=== PATIENT | male | born 1935 | race Caucasian/White ===

== ENCOUNTER 2016-06-25 11:58 | Emergency (ER) | payer MEDICARE, OTHER ==
[2016-06-25 13:42] VITALS: BP 153/56
--- NOTE | 2016-06-26 15:36 | ER ---
DATE SEEN: 06/25/2016 TIME SEEN: The patient was seen at approximately 1225 hours. HISTORY OF PRESENT ILLNESS: This 81-year-old gentleman comes in with history of bleed in the right lower eye. It was noted by his bit tapper on 06/23/2016. The patient states he can read big writing. Otherwise, he has a baseline vision that has not changed. No history of glaucoma. Denies pain in his eye, but is uncomfortable. PAST MEDICAL HISTORY: He has had aortic graft placed, which he relates was from the neck to the lower abdomen. He did not have any compromise with this. He quit smoking in 1990. Smoked a pack of cigarettes for 18 years. He has chronic obstructive lung disease, but he feels that his emphysema was more from dust than smoking. He has had previous stents in his heart. He went to [facility] because the [place] thoracic surgeon felt that they could not operate on hiw aortic aneurysm at [place]. The patient states a "stent" was placed, but really is probably an aortic graft, Dacron graft. Status post inguinal herniorrhaphy 2 months ago for which he was transitioned to enoxaparin and then back on to Coumadin. Intermittent chest pain, which he calls "little one/for few seconds." He has reflux. MEDICATIONS: 1. Metoprolol succinate 100 mg daily, 50 mg daily, total of 150 mg daily. 2. Aspirin 81 mg daily. 3. Tylenol. 4. Simvastatin 40 mg daily. 5. Protonix 40 mg daily. 6. Multivitamins. 7. Warfarin 2.5 mg Sunday, Sunday, , Sunday, and Sunday, otherwise Sunday and Sunday 5 mg daily. REVIEW OF SYSTEMS: Otherwise, negative. He denies abdominal discomfort currently, weakness lower extremities, difficulty walking, previous headache. He denies new compromised vision. PHYSICAL EXAMINATION: VITAL SIGNS: Blood pressure 178/71, heart rate 65 and regular, respirations 20, oxygen saturation 93% on room air, temperature is 36.8 degrees centigrade. GENERAL: Alert man, very happy fellow, has a slight red flush in his face. He has notable injection of the inferior sclera, right eye. HEENT: Pupils equal, round, and minimal reactivity, but react to light. EOMs normal. No diplopia. No compromise of vision with confrontation. No visual field loss. NECK: Trace bruits. No masses. CHEST: Slight irregularity from his previous sternotomy. HEART: S1, S2. No irregular rate and rhythm. Soft systolic murmur. Left crescendo-decrescendo sternal border. LUNGS: Occasional rales. ABDOMEN: Soft. No guarding. No abdominal discomfort. No bruits. EXTREMITIES: Without edema. Sensation extremities normal. Deep tendon reflexes hypoactive. NEUROLOGIC: Cranial nerves 2 through 12 intact. Decreased hearing. LABORATORY DATA: INR 2.11; previous INR on 06/15/2016 was 2.6. ADDITIONAL COMMENT: Eye exam; ophthalmoscopic examination with arterial narrowing. Optic cup normal appearance. No evidence for retinal tear. Mild right scleral injection. No cataracts evident. ASSESSMENT: 1. Scleral hemorrhage, probably benign. 2. No history of visual change with scleral hemorrhage. 3. The patient is on anticoagulants because of his previous aortic aneurysm graft and stents placed. 4. Appropriate anticoagulation with his current warfarin dose. 5. Chronic obstructive pulmonary disease. 6. Gastroesophageal reflux disease. PLAN: The patient to follow up with Ophthalmology tomorrow. /[id number] MELITON/DAVID PULIDO
== END 2016-06-25 13:48 | disposition home or self-care (01) ==
LOC: FB.ED 11:58
DX: H11.31 Conjunctival hemorrhage, right eye (principal); J44.9 Chronic obstructive pulmonary disease, unspecified; K21.9 Gastro-esophageal reflux disease without esophagitis; Z87.891 Personal history of nicotine dependence
CPT/HCPCS: 36415; 85610; 99282; 99283

== ENCOUNTER 2017-01-17 19:05 | Inpatient (IN) | payer MEDICARE, OTHER ==
[2017-01-17] MEDS ORDERED: methylPREDNISolone Sodium Succinate 40 MG/1 ML SDV IVPUSH ONE (20:11)
[2017-01-17] MEDS ORDERED: Albuterol/Ipratropium 3.0-0.5 MG/3 ML Neb Soln NEB ONE (21:04)
[2017-01-17] MEDS: Albuterol/Ipratropium 3.0-0.5 MG/3 ML Neb Soln ONE ×2 (21:04→21:10)
[2017-01-17] MEDS: Sodium Chloride 0.9% 10 ML Syringe FLUSH PRN ×2 (21:11→23:10)
[2017-01-17] MEDS ORDERED: Levofloxacin 500 MG Tab PO SCH (21:30)
--- NOTE | 2017-01-17 21:37 | EDM.PDOC ---
ED HPI GENERAL MEDICAL PROBLEM - General Chief Complaint: Respiratory Problem Stated Complaint: PNEUMONIA Time Seen by Provider: 01/17/17 20:34 Source of Information: Reports: Patient History Limitations: Reports: No Limitations - History of Present Illness INITIAL COMMENTS - FREE TEXT/NARRATIVE: c/o RLL pneumonia pt sent from clinic by Dr Rubin for admission for CxR that shows slight inc' d markings in RLL. pt lives alone since 11m ago, sob x 5d, got better , then worse again, has a hard time bringing up mucus, no f/c/d, no nebs or HFAs at home, did not get much benefit from Duoneb here. 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: Oxygen - Related Data Allergies Allergy/AdvReac Type Severity Reaction Status Date / Time succinylcholine Allergy Other Verified 01/17/17 20:01 Home Meds: Home Meds Acetaminophen [Tylenol] 325 mg PO DAILY PRN 05/26/15 [History] Aspirin 81 mg PO DAILY 05/26/15 [History] Metoprolol Succinate 50 mg PO DAILY 05/26/15 [History] Metoprolol Succinate [Toprol Xl] 100 mg PO DAILY 05/26/15 [History] Multivit-Min/FA/Lycopene/Lut [Centrum Silver Ultra Men's] 1 tab PO DAILY [History] Pantoprazole [Protonix] 40 mg PO DAILY PRN 05/26/15 [History] Simvastatin [Simvastatin] 40 mg PO BEDTIME 05/26/15 [History] Warfarin [Coumadin] 2.5 mg PO SUTUTHFRSA 05/26/15 [History] Warfarin [Coumadin] 5 mg PO MOWEFR 05/26/15 [History] Past Medical History HEENT History: Reports: Impaired Vision Other HEENT History: wears glasses Cardiovascular History: Reports: Afib, High Cholesterol, Hypertension, Other ( See Below) Other Cardiovascular History: malignant hyperthermia Respiratory History: Reports: COPD Gastrointestinal History: Reports: GERD Hematologic History: Reports: Anticoagulation Therapy - Infectious Disease History Infectious Disease History: Reports: Chicken Pox, Measles, Shingles - Past Surgical History Cardiovascular Surgical History: Reports: Coronary Artery Bypass Social & Family History - Family History Family Medical History: Noncontributory - Tobacco Use Smoking Status *Q: Former Smoker Years of Tobacco use: 40 Used Tobacco, but Quit: Yes Month Tobacco Last Used: 20 YEARS AGO - Caffeine Use Caffeine Use: Reports: Coffee - Recreational Drug Use Recreational Drug Use: No ED ROS GENERAL - Review of Systems Review Of Systems: See Below Constitutional: Reports: No Symptoms HEENT: Reports: No Symptoms Respiratory: Reports: Shortness of Breath, Cough Cardiovascular: Reports: No Symptoms. Denies: Chest Pain Endocrine: Reports: No Symptoms GI/Abdominal: Reports: No Symptoms : Reports: No Symptoms Musculoskeletal: Reports: No Symptoms Skin: Reports: No Symptoms Neurological: Reports: No Symptoms Psychiatric: Reports: No Symptoms Hematologic/Lymphatic: Reports: No Symptoms Immunologic: Reports: No Symptoms ED EXAM, GENERAL - Physical Exam Exam: See Below Exam Limited By: No Limitations General Appearance: Alert, WD/WN, No Apparent Distress, Other (quite pleasant, talkative, smiling, talks in 10-word sentences) Eye Exam: Bilateral Eye: Normal Inspection Ears: Normal External Exam Nose: Normal Inspection, Normal Mucosa, No Blood Throat/Mouth: Normal Inspection, Normal Lips, Normal Gums, Normal Oropharynx, Normal Voice, No Airway Compromise Head: Atraumatic, Normocephalic Neck: Normal Inspection, Supple, Non-Tender, Full Range of Motion Respiratory/Chest: Lungs Clear, Chest Non-Tender, Other (fair AE, no wheeze, no rales, mild dyspnea) Cardiovascular: Regular Rate, Rhythm, No Edema, No Gallop, No Rub, Other (2/6 SILKE at LSB) GI/Abdominal: Soft, Non-Tender, No Distention Back Exam: Normal Inspection Extremities: Normal Inspection, Normal Range of Motion, Non-Tender, No Pedal Edema Neurological: Alert, Oriented, CN II-XII Intact, Normal Cognition, No Motor/ Sensory Deficits Psychiatric: Normal Affect, Normal Mood Skin Exam: Warm, Dry, Intact, Normal Color, No Rash Lymphatic: No Adenopathy Course - Vital Signs Last Recorded V/S: Last Vital Signs Temp 36.5 C 01/17/17 19:55 Pulse 75 01/17/17 19:55 Resp 20 01/17/17 21:00 BP 149/93 H 01/17/17 21:00 Pulse Ox 89 L 01/17/17 21:00 - Orders/Labs/Meds Orders: Active Orders 24 hr Category Date Time Status EKG Documentation Completion [RC] ASDIRECTED Care 01/17/17 20:10 Active RT Aerosol Therapy [RC] ASDIRECTED Care 01/17/17 21:05 Active URINALYSIS W/MICROSCOPIC [UA W/MICROSCOPIC] [URIN] Stat Lab 01/17/17 20:08 Uncollected Levofloxacin [Levaquin] Med 01/17/17 21:30 Ordered 500 mg PO Q24H Sodium Chloride 0.9% [Saline Flush] Med 01/17/17 21:04 Active 10 ml FLUSH ASDIRECTED PRN Peripheral IV Insertion Adult [OM.PC] Routine Oth 01/17/17 21:04 Ordered EKG 12 Lead [EK] Routine Ther 01/17/17 20:09 Ordered Medication Orders Levofloxacin (Levaquin) 500 mg PO Q24H JESUS Sodium Chloride (Saline Flush) 10 ml FLUSH ASDIRECTED PRN PRN Reason: Keep Vein Open Last Admin: 01/17/17 21:11 Dose: 10 ml Labs: Laboratory Tests 01/17/17 01/17/17 01/17/17 Range/Units 20:30 20:30 20:30 WBC 8.2 (4.5-12.0) X10-3/uL RBC 4.69 (4.30-5.75) x10(6)uL Hgb 14.4 (11.5-15.5) g/dL Hct 44.2 (30.0-51.3) % MCV 94.2 (80-96) fL MCH 30.7 (27.7-33.6) pg MCHC 32.6 (32.2-35.4) g/dL RDW 14.6 (11.5-15.5) % Plt Count 106 L (125-369) X10(3)uL MPV 9.0 (7.4-10.4) fL Neut % (Auto) 84.1 H (46-82) % Lymph % (Auto) 7.8 L (13-37) % [place] % (Auto) 6.3 (4-12) % Eos % (Auto) 1 (1.0-5.0) % Baso % (Auto) 1 (0-2) % Neut # (Auto) 7.0 (1.6-8.3) # Lymph # (Auto) 0.6 (0.6-5.0) # [place] # (Auto) 0.5 (0.0-1.3) # Eos # (Auto) 0.0 (0.0-0.8) # Baso # (Auto) 0.1 (0.0-0.2) # PT 45.5 H* (8.7-11.1) INR 4.37 H* (0.89-1.13) VBG pH 7.327 (7.32-7.42) VBG pCO2 66.0 VBG pO2 21 VBG HCO3 35 mmol/L VBG O2 Saturation 28 VBG Base Excess 9.0 O2 Delivery Device Nasal cannula Sodium (135-145) mmol/L Potassium (3.5-5.3) mmol/L Chloride (100-110) mmol/L Carbon Dioxide (23-29) mmol/L BUN (8-23) mg/dL Creatinine (0.6-1.3) mg/dL Est Cr Clr Drug Dosing mL/min Estimated GFR (MDRD) (>60) BUN/Creatinine Ratio (9-20) Glucose (80-116) mg/dL Lactic Acid (0.5-2.2) mmol/L Calcium (8.6-10.2) mg/dL Total Bilirubin (0.1-1.3) mg/dL AST (5-27) IU/L ALT (14-26) IU/L Alkaline Phosphatase (56-112) IU/L Troponin I (0.02-0.06) NG/ML C-Reactive Protein (0.0-1.0) mg/dL NT-Pro-B Natriuret Pep (5-450) pg/mL Total Protein (6.0-8.0) g/dL Albumin (3.2-4.6) g/dL Globulin g/dL Albumin/Globulin Ratio 01/17/17 01/17/17 01/17/17 Range/Units 20:30 20:30 20:30 WBC (4.5-12.0) X10-3/uL RBC (4.30-5.75) x10(6)uL Hgb (11.5-15.5) g/dL Hct (30.0-51.3) % MCV (80-96) fL MCH (27.7-33.6) pg MCHC (32.2-35.4) g/dL RDW (11.5-15.5) % Plt Count (125-369) X10(3)uL MPV (7.4-10.4) fL Neut % (Auto) (46-82) % Lymph % (Auto) (13-37) % [place] % (Auto) (4-12) % Eos % (Auto) (1.0-5.0) % Baso % (Auto) (0-2) % Neut # (Auto) (1.6-8.3) # Lymph # (Auto) (0.6-5.0) # [place] # (Auto) (0.0-1.3) # Eos # (Auto) (0.0-0.8) # Baso # (Auto) (0.0-0.2) # PT (8.7-11.1) INR (0.89-1.13) VBG pH (7.32-7.42) VBG pCO2 VBG pO2 VBG HCO3 mmol/L VBG O2 Saturation VBG Base Excess O2 Delivery Device Sodium 140 (135-145) mmol/L Potassium 4.5 (3.5-5.3) mmol/L Chloride 99 L (100-110) mmol/L Carbon Dioxide 36 H (23-29) mmol/L BUN 20 (8-23) mg/dL Creatinine 0.8 (0.6-1.3) mg/dL Est Cr Clr Drug Dosing 68.85 mL/min Estimated GFR (MDRD) > 60 (>60) BUN/Creatinine Ratio 25.0 H (9-20) Glucose 146 H (80-116) mg/dL Lactic Acid 0.9 (0.5-2.2) mmol/L Calcium 8.5 L (8.6-10.2) mg/dL Total Bilirubin 1.0 (0.1-1.3) mg/dL AST 29 H (5-27) IU/L ALT 37 H (14-26) IU/L Alkaline Phosphatase 69 (56-112) IU/L Troponin I 0.04 (0.02-0.06) NG/ML C-Reactive Protein (0.0-1.0) mg/dL NT-Pro-B Natriuret Pep (5-450) pg/mL Total Protein 6.9 (6.0-8.0) g/dL Albumin 3.6 (3.2-4.6) g/dL Globulin 3.3 g/dL Albumin/Globulin Ratio 1.1 01/17/17 01/17/17 Range/Units 20:30 20:30 WBC (4.5-12.0) X10-3/uL RBC (4.30-5.75) x10(6)uL Hgb (11.5-15.5) g/dL Hct (30.0-51.3) % MCV (80-96) fL MCH (27.7-33.6) pg MCHC (32.2-35.4) g/dL RDW (11.5-15.5) % Plt Count (125-369) X10(3)uL MPV (7.4-10.4) fL Neut % (Auto) (46-82) % Lymph % (Auto) (13-37) % [place] % (Auto) (4-12) % Eos % (Auto) (1.0-5.0) % Baso % (Auto) (0-2) % Neut # (Auto) (1.6-8.3) # Lymph # (Auto) (0.6-5.0) # [place] # (Auto) (0.0-1.3) # Eos # (Auto) (0.0-0.8) # Baso # (Auto) (0.0-0.2) # PT (8.7-11.1) INR (0.89-1.13) VBG pH (7.32-7.42) VBG pCO2 VBG pO2 VBG HCO3 mmol/L VBG O2 Saturation VBG Base Excess O2 Delivery Device Sodium (135-145) mmol/L Potassium (3.5-5.3) mmol/L Chloride (100-110) mmol/L Carbon Dioxide (23-29) mmol/L BUN (8-23) mg/dL Creatinine (0.6-1.3) mg/dL Est Cr Clr Drug Dosing mL/min Estimated GFR (MDRD) (>60) BUN/Creatinine Ratio (9-20) Glucose (80-116) mg/dL Lactic Acid (0.5-2.2) mmol/L Calcium (8.6-10.2) mg/dL Total Bilirubin (0.1-1.3) mg/dL AST (5-27) IU/L ALT (14-26) IU/L Alkaline Phosphatase (56-112) IU/L Troponin I (0.02-0.06) NG/ML C-Reactive Protein 5.2 H* (0.0-1.0) mg/dL NT-Pro-B Natriuret Pep 2158 H (5-450) pg/mL Total Protein (6.0-8.0) g/dL Albumin (3.2-4.6) g/dL Globulin g/dL Albumin/Globulin Ratio Meds: Medications Generic Name Dose Route Start Last Admin Trade Name Freq PRN Reason Stop Dose Admin Levofloxacin 500 mg 01/17/17 21:30 Levaquin PO Q24H JESUS Sodium Chloride 10 ml 01/17/17 21:04 01/17/17 21:11 Saline Flush FLUSH 10 ml ASDIRECTED PRN Administration Keep Vein Open Discontinued Medications Generic Name Dose Route Start Last Admin Trade Name Freq PRN Reason Stop Dose Admin Albuterol/Ipratropium Confirm 01/17/17 20:58 01/17/17 21:10 Duoneb 3.0-0.5 Mg/3 Ml Administered 01/17/17 20:59 Not Given Dose 3 ml .ROUTE .STK-MED ONE Albuterol/Ipratropium 3 ml 01/17/17 21:04 01/17/17 21:04 Duoneb 3.0-0.5 Mg/3 Ml NEB 01/17/17 21:05 3 ml ONETIME ONE Administration Methylprednisolone Sodium Succinate 80 mg 01/17/17 20:11 01/17/17 21:09 Solu-Medrol IVPUSH 01/17/17 20:12 80 mg ONETIME ONE Administration Departure - Departure Time of Disposition: 21:34 Disposition: Admitted As Inpatient 67 Condition: Good Clinical Impression: Right lower lobe pneumonia, Carbon dioxide retention, COPD exacerbation, Pulmonary fibrosis, Acute exacerbation of congestive heart failure, Supratherapeutic INR, Elevated C-reactive protein (CRP) - Discharge Information Referrals: Wm Rubin MD [Primary Care Provider] - - My Orders Last 24 Hours: My Active Orders 01/17/17 20:08 URINALYSIS W/MICROSCOPIC [UA W/MICROSCOPIC] [URIN] Stat 01/17/17 20:09 EKG 12 Lead [EK] Routine 01/17/17 20:10 EKG Documentation Completion [RC] ASDIRECTED 01/17/17 21:04 Sodium Chloride 0.9% [Saline Flush] 10 ml FLUSH ASDIRECTED PRN Peripheral IV Insertion Adult [OM.PC] Routine 01/17/17 21:05 RT Aerosol Therapy [RC] ASDIRECTED 01/17/17 21:30 Levofloxacin [Levaquin] 500 mg PO Q24H - Assessment/Plan Last 24 Hours: My Active Orders 01/17/17 20:08 URINALYSIS W/MICROSCOPIC [UA W/MICROSCOPIC] [URIN] Stat 01/17/17 20:09 EKG 12 Lead [EK] Routine 01/17/17 20:10 EKG Documentation Completion [RC] ASDIRECTED 01/17/17 21:04 Sodium Chloride 0.9% [Saline Flush] 10 ml FLUSH ASDIRECTED PRN Peripheral IV Insertion Adult [OM.PC] Routine 01/17/17 21:05 RT Aerosol Therapy [RC] ASDIRECTED 01/17/17 21:30 Levofloxacin [Levaquin] 500 mg PO Q24H
[2017-01-17] MEDS ORDERED: Levofloxacin/Dextrose 5%-Water 500 MG in Premix Bag 1 BAG IV SCH ×2 (21:45→22:30)
[2017-01-17] MEDS ORDERED: Magnesium Hydroxide 400 MG/5 ML Susp 30 ML Cup PO PRN (22:23)
[2017-01-17] MEDS ORDERED: Acetaminophen 325 MG Tab PO PRN (22:23)
[2017-01-17] MEDS ORDERED: Ondansetron 4 MG/2 ML SDV IV PRN (22:23)
[2017-01-17] MEDS ORDERED: Zolpidem 5 MG Tab PO PRN (22:23)
[2017-01-17] MEDS ORDERED: Pantoprazole 40 MG Tab.CR PO PRN (22:28)
[2017-01-17] MEDS: methylPREDNISolone Sodium Succinate 125 MG/2 ML SDV IVPUSH SCH (22:44)
[2017-01-17] MEDS ORDERED: Sodium Chloride 0.9% 10 ML SDV FLUSH SCH (23:00)
[2017-01-18] MEDS ORDERED: FLU Vacc QS 2017-18 (36mos UP)/PF 60 MCG/0.5 ML Syringe IM ONE (00:30)
[2017-01-18] MEDS: methylPREDNISolone Sodium Succinate 125 MG/2 ML SDV IVPUSH SCH ×3 (05:36→22:38)
[2017-01-18] MEDS: Sodium Chloride 0.9% 10 ML Syringe FLUSH PRN ×6 (05:38→22:38)
[2017-01-18] MEDS: Albuterol/Ipratropium 3.0-0.5 MG/3 ML Neb Soln NEB SCH ×4 (07:06→20:11)
[2017-01-18] MEDS ORDERED: Metoprolol Succinate 50 MG Tab.ER PO SCH (09:00)
[2017-01-18] MEDS ORDERED: Albuterol 0.083% 2.5 MG/3 ML Neb Soln NEB PRN (09:22)
[2017-01-18] MEDS: Metoprolol Succinate 100 MG Tab.ER PO SCH (09:38)
[2017-01-18] MEDS: Aspirin 81 MG Tab.Chew PO SCH (09:38)
[2017-01-18] MEDS: Acetaminophen 650 MG Tab.ER PO SCH (09:39)
[2017-01-18] MEDS: Multivitamins, Therapeutic with Minerals Tab PO SCH (09:39)
[2017-01-18] MEDS: Docusate Sodium 100 MG Cap PO SCH ×2 (10:55→20:19)
--- NOTE | 2017-01-18 12:01 | PCM.HP ---
H&P History of Present Illness - General Date of Service: 01/18/17 Admit Problem/Dx: Admission Diagnosis/Problem Admission Diagnosis/Problem Pneumonia Source of Information: Patient, Old Records History Limitations: Reports: No Limitations - History of Present Illness Initial Comments - Free Text/Narative: Mr. Alvarado is a pleasant 81-year-old male presenting to the ER with increasing shortness of breath increase and change in sputum and overall general debility and malaise. He has a long-standing history of severe COPD oxygen dependent with recent exacerbation bronchitis seen outpatient by PCP shown to have both right lower lobe pneumonia and increase cephalization suggesting exacerbation of known CHF as well. Noted to be hypoxic with his oxygen saturations running in the upper 70s to low 80s on room air coming up to low 90 on 2 L nasal cannula. Given a DuoNeb treatment in the ER which should improve his sats. Venous ABG does show he is a CO2 retainer. He was started on IV steroid burst, blood and urine cultures were obtained sputum culture obtained and IV antibiotics were started appropriately. He does come from home and is ambulatory. Not currently on any outpatient and held steroids or beta agonist. Unknown PFTs. Prior EKGs were reviewed as he does have a right bundle branch block which does not appear to be new. Troponin negative in the ER. He otherwise has no history of fevers or chills he's not had any change in appetite, nausea or vomiting. Denies any headache neck arm back or jaw pain. Denies any chest pressure or heaviness. Did not notice any increase in lower extremity edema. He is up-to-date on his influenza vaccination which he received in December 2016. Denies any hospitalizations or procedures in the last 3 months, no ill contacts, no travel. He denies having any falls, denies any diarrhea, denies increase or decrease in urination. Denies pain hematuria or difficulty with urinary stream. Denies melena or hematochezia. He denies any wounds or skin lesions. Does not bruise or bleed easily. He is on chronic anticoagulation secondary to paroxysmal atrial fibrillation/flutter as well as a thoracic aortic aneurysm graft placed at [facility] several years ago. INR was noted to be supratherapeutic at greater than 4. His warfarin has been held. Patient's PCP is Dr. Scottie MD at [facility]. denies pain when asked Pain Score (Numeric/FACES): 0 - Related Data Allergies/Adverse Reactions: Allergies Allergy/AdvReac Type Severity Reaction Status Date / Time succinylcholine Allergy Other Verified 01/17/17 20:01 Home Medications: Home Meds Aspirin 81 mg PO DAILY 05/26/15 [History] Metoprolol Succinate 50 mg PO BEDTIME 05/26/15 [History] Metoprolol Succinate [Toprol Xl] 100 mg PO DAILY 05/26/15 [History] Multivit-Min/FA/Lycopene/Lut [Centrum Silver Ultra Men's] 1 tab PO DAILY [History] Pantoprazole [Protonix] 40 mg PO BEDTIME 05/26/15 [History] Simvastatin [Simvastatin] 40 mg PO BEDTIME 05/26/15 [History] Warfarin [Coumadin] 2.5 mg PO SUTUWETHFRSA 05/26/15 [History] Warfarin [Coumadin] 3.75 mg PO MO 05/26/15 [History] Acetaminophen [Tylenol Arthritis] 1,300 mg PO DAILY 01/18/17 [History] Past Medical History HEENT History: Reports: Impaired Vision Other HEENT History: wears glasses Cardiovascular History: Reports: Afib (paroxysmal), Aneurysm (thoraciac aortic-s /p grafting), Heart Failure, High Cholesterol, Hypertension, SOB on Exertion, Stents (primary coronary), Other (See Below). Denies: Blood Clots/VTE/DVT, NV Other Cardiovascular History: malignant hyperthermia Respiratory History: Reports: Bronchitis, Recurrent, COPD, Pneumonia, Recurrent , SOB, Other (See Below) (O2 dependent) Gastrointestinal History: Reports: GERD (chronic ppi.) Genitourinary History: Reports: None Musculoskeletal History: Reports: Osteoarthritis, Osteoporosis Neurological History: Reports: None Psychiatric History: Reports: None Endocrine/Metabolic History: Reports: Osteoporosis Hematologic History: Reports: Anesthesia Reaction (malignant hyperthermia.), Anticoagulation Therapy. Denies: Blood Transfusion(s) Immunologic History: Reports: None Oncologic (Cancer) History: Reports: None - Infectious Disease History Infectious Disease History: Reports: Chicken Pox, Measles, Shingles - Past Surgical History Cardiovascular Surgical History: Reports: Aneurysm (thoracic aortic graft), Coronary Artery Bypass, Coronary Artery Stent Musculoskeletal Surgical History: Reports: None - Past Imaging History Past Imaging History: Reports: Angiography, Cardiac Echo (chemical), EEG, Stress Testing, Xray Social & Family History - Family History Family Medical History: Noncontributory - Tobacco Use Smoking Status *Q: Former Smoker Years of Tobacco use: 25 Used Tobacco, but Quit: Yes Month Tobacco Last Used: 1993 - Caffeine Use Caffeine Use: Reports: Coffee - Alcohol Use Alcohol Use History: No - Recreational Drug Use Recreational Drug Use: No H&P Review of Systems - Review of Systems: Review Of Systems: ROS reveals no pertinent complaints other than HPI. Exam - Exam Exam: See Below - Vital Signs Vital Signs: Last Vital Signs Temp 97.5 F 01/18/17 07:31 Pulse 80 01/18/17 09:38 Resp 22 H 01/18/17 07:31 BP 170/73 H 01/18/17 09:38 Pulse Ox 85 L 01/18/17 08:16 Weight: 73.028 kg - Exam Quality Assessment: Supplemental Oxygen (2L) General: Alert, Oriented, Cooperative, Mild Distress HEENT: Conjunctiva Clear, Hearing Intact, Pupils Equal, Glasses Neck: Supple, Trachea Midline, +2 Carotid Pulse wo Bruit, Full Range of Motion. No: Lymphadenopathy, JVD, Thyromegaly Lungs: Crackles (rll some at left also which are coarsened likely chronic fibrosis. minimal rales at bases bilate. ), Rales Cardiovascular: Regular Rate, Regular Rhythm, Normal S1, Normal S2 GI/Abdominal Exam: Normal Bowel Sounds, Soft, Non-Tender (Male) Exam: Normal Inspection. No: Inguinal Lymphadenopathy Back Exam: Normal Inspection. No: Paraspinal Tenderness, Vertebral Tenderness Extremities: Normal Inspection, No Pedal Edema, Normal Capillary Refill. No: Leg Pain, Redness Skin: No: Ecchymosis, Wound, Decubitis Neurological: Cranial Nerves Intact, Strength Equal Bilateral, Normal Speech. No: Focal Deficit Neuro Extensive - Mental Status: Normal Mood/Affect, Memory Intact - Patient Data Lab Results Last 24 hrs: Laboratory Results - last 24 hr 01/17/17 01/18/17 01/18/17 Range/Units 23:15 06:08 08:30 PT 44.1 H* (8.7-11.1) INR 4.24 H* (0.89-1.13) ABG pH 7.38 (7.35-7.45) ABG pCO2 51 H (35-45) mmHg ABG pO2 60 L (83-108) mmHg ABG HCO3 30 H (22-26) mmol/L ABG O2 Saturation 90 L (96-97) % ABG Base Excess 3.8 H (-2-2) Marcello Test Passed O2 Delivery Device Nasal cannula Urine Color Yellow (YELLOW) Urine Appearance Clear (CLEAR) Urine pH 6.0 (5.0-6.5) Ur Specific [place] 1.020 (1.010-1.025) Urine Protein Negative (NEGATIVE) mg/dL Urine Glucose (UA) Normal (NEGATIVE) mg/dL Urine Ketones Negative (NEGATIVE) mg/dL Urine Occult Blood Negative (NEGATIVE) Urine Nitrite Negative (NEGATIVE) Urine Bilirubin Negative (NEGATIVE) Urine Urobilinogen 1 H (NEGATIVE) mg/dL Ur Leukocyte Esterase Negative (NEGATIVE) Urine RBC 0-5 (0) Urine WBC 0-5 (0) Ur Squamous Epith Cells Occasional (NS,R,O) Urine Bacteria Few H (NS) Result Diagrams: 01/19/17 06:20 01/19/17 06:20 Lopez Results Last 24 hrs: Blood and Sputum Cultures collected and pending./ Imaging Impressions Last 24 hrs: CXR report from [facility] reviewed and agree CAP RLL pneumonia with pulmonary congestion clinically. EKG INTERPRETATION EKG Date: 01/17/17 Time: 22:07 Rhythm: NSR Rate (Beats/Min): 75 Roscoe: LAD-Left Roscoe Deviation P-Wave: Present QRS: RBBB ST-T: Normal QT: Normal Comparison: NA - No Prior EKG (to view at this time.) *Q Meaningful Use (ADM) - VTE *Q VTE Criteria *Q: VTE Mechanical Contraindications *Q: Congestive Heart Failure VTE Pharmacological Contraindications *Q: High INR Value - Stroke *Q Stroke Criteria *Q: - AMI *Q AMI Criteria *Q: - Problem List (1) Right lower lobe pneumonia SNOMED Code(s): 753041542 ICD Code: J18.1 - LOBAR PNEUMONIA, UNSPECIFIED ORGANISM Status: Acute Priority: High Current Visit: Yes Qualifiers: Pneumonia type: due to unspecified organism Qualified Code(s): J18.1 - Lobar pneumonia, unspecified organism (2) COPD exacerbation SNOMED Code(s): 458468191427856 ICD Code: J44.1 - CHRONIC OBSTRUCTIVE PULMONARY DISEASE W (ACUTE) EXACERBATION Status: Acute Priority: High Current Visit: Yes (3) Acute exacerbation of congestive heart failure SNOMED Code(s): 84066781 ICD Code: I50.9 - HEART FAILURE, UNSPECIFIED Status: Acute Priority: High Current Visit: Yes Qualifiers: Congestive heart failure type: unspecified congestive heart failure type Qualified Code(s): I50.9 - Heart failure, unspecified (4) Carbon dioxide retention SNOMED Code(s): 30419702 ICD Code: E87.2 - ACIDOSIS Status: Acute Priority: High Current Visit: Yes (5) Supratherapeutic INR SNOMED Code(s): 812960365 ICD Code: R79.1 - ABNORMAL COAGULATION PROFILE Status: Acute Priority: High Current Visit: Yes (6) Elevated C-reactive protein (CRP) SNOMED Code(s): 873673021 ICD Code: R79.82 - ELEVATED C-REACTIVE PROTEIN (CRP) Status: Acute Current Visit: Yes (7) Stage 3 severe COPD by GOLD classification SNOMED Code(s): 757518402 ICD Code: J44.9 - CHRONIC OBSTRUCTIVE PULMONARY DISEASE, UNSPECIFIED Status : Chronic Priority: High Current Visit: Yes (8) Oxygen dependent SNOMED Code(s): 316751447153 ICD Code: Z99.81 - DEPENDENCE ON SUPPLEMENTAL OXYGEN Status: Chronic Priority: High Current Visit: Yes (9) Pulmonary fibrosis SNOMED Code(s): 96881322 ICD Code: J84.10 - PULMONARY FIBROSIS, UNSPECIFIED Status: Chronic Current Visit: Yes (10) CAD (coronary artery disease) SNOMED Code(s): 99602573 ICD Code: I25.10 - ATHSCL HEART DISEASE OF [place] CORONARY ARTERY W/O ANG PCTRS Status: Chronic Priority: High Current Visit: Yes Qualifiers: Coronary Disease-Associated Artery/Lesion type: pala artery [place] vs. 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 SNOMED Code(s): 450886422 ICD Code: Z98.890 - OTHER SPECIFIED POSTPROCEDURAL STATES; Z86.79 - PERSONAL HISTORY OF OTHER DISEASES OF THE CIRCULATORY SYSTEM Status: Chronic Current Visit: Yes (12) Chronic anticoagulation SNOMED Code(s): 445675564 ICD Code: Z79.01 - GEOLOGY TECHNICIAN (CURRENT) USE OF ANTICOAGULANTS Status: Chronic Priority: High Current Visit: Yes (13) Palliative care patient SNOMED Code(s): 384014212 ICD Code: Z51.5 - ENCOUNTER FOR PALLIATIVE CARE Status: Chronic Priority : High Current Visit: Yes Problem List Initiated/Reviewed/Updated: Yes Orders Last 24hrs: Active Orders 24 hr Category Date Time Status Daily Weight [Height and Weight] [RC] DAILY Care 01/18/17 09:21 Active IS (RT) [RT Incentive Spirometry] [RC] ASDIRECTED Care 01/18/17 07:12 Active IS (RT) [RT Incentive Spirometry] [RC] Q2HWA Care 01/18/17 09:13 Active Intake and Output Strict [RC] ASDIRECTED Care 01/18/17 09:21 Active Notify Provider Vital Signs [RC] Q4H Care 01/18/17 09:24 Active Oxygen Therapy Adult [Oxygen Therapy] [RC] ASDIRECTED Care 01/18/17 08:16 Active RT Peak Flow Measurement [RC] DAILY Care 01/18/17 09:21 Active Up With Assistance [RC] ASDIRECTED Care 01/18/17 09:22 Active VTE/DVT Education [RC] Per Unit Routine Care 01/17/17 22:23 Active Vital Signs [RC] 00,04,08,12,16,20 Care 01/17/17 22:23 Active OT Evaluation and Treatment [CONS] Routine Cons 01/18/17 09:22 Active PT Evaluation and Treatment [CONS] Routine Cons 01/18/17 09:22 Active 2 Gram Sodium Diet [DIET] Diet 01/18/17 Breakfast Active Chest 2V [CR] Routine Exams 01/19/17 07:00 Ordered Echo Comp wo Cont [US] Routine Exams 01/19/17 08:00 Ordered BASIC METABOLIC PANEL,BMP [CHEM] DAILY Lab 01/19/17 06:00 Ordered BASIC METABOLIC PANEL,BMP [CHEM] DAILY Lab 01/20/17 06:00 Ordered BASIC METABOLIC PANEL,BMP [CHEM] DAILY Lab 01/21/17 06:00 Ordered C-REACTIVE PROTEIN [CHEM] Routine Lab 01/20/17 06:00 Ordered CBC WITH AUTO DIFF [HEME] DAILY Lab 01/19/17 06:00 Ordered CBC WITH AUTO DIFF [HEME] DAILY Lab 01/20/17 06:00 Ordered CBC WITH AUTO DIFF [HEME] DAILY Lab 01/21/17 06:00 Ordered CULTURE SPUTUM + SMEAR [RM] Routine Lab 01/18/17 07:40 Received INR,PT,PROTHROMBIN TIME [COAG] DAILY Lab 01/19/17 06:00 Ordered INR,PT,PROTHROMBIN TIME [COAG] DAILY Lab 01/20/17 06:00 Ordered INR,PT,PROTHROMBIN TIME [COAG] DAILY Lab 01/21/17 06:00 Ordered INR,PT,PROTHROMBIN TIME [COAG] DAILY Lab 01/22/17 06:00 Ordered PRO B-TYPE NATRIUR PEPT,BNPPRO [CHEM] Routine Lab 01/20/17 06:00 Ordered TROPONIN I [CHEM] Routine Lab 01/18/17 14:00 Ordered Acetaminophen [Tylenol Arthritis Pain] Med 01/18/17 09:00 Active 1,300 mg PO DAILY Acetaminophen [Tylenol] Med 01/17/17 22:23 Active 650 mg PO Q4H PRN Albuterol [Proventil Neb Soln] Med 01/18/17 09:22 Active 2.5 mg NEB Q2H PRN Albuterol/Ipratropium [DuoNeb 3.0-0.5 MG/3 ML] Med 01/18/17 07:00 Active 3 ml NEB QIDRT Aspirin Med 01/18/17 09:00 Active 81 mg PO DAILY Docusate Sodium [Colace] Med 01/18/17 09:30 Active 100 mg PO BID Levofloxacin/Dextrose 5%-Water [Levaquin in D5W 750 MG/ Med 01/18/17 21:00 Active 150 ML] 750 mg Premix Bag 1 bag IV Q24H Magnesium Hydroxide [Milk of Magnesia] Med 01/17/17 22:23 Active 30 ml PO Q12H PRN Metoprolol Succinate [Toprol XL] Med 01/18/17 09:00 Active 100 mg PO DAILY Metoprolol Succinate [Toprol XL] Med 01/18/17 21:00 Active 50 mg PO BEDTIME Multivitamins/Minerals [Vitamins and Minerals] Med 01/18/17 09:00 Active 1 tab PO DAILY Ondansetron [Zofran] Med 01/17/17 22:23 Active 4 mg IV Q4H PRN Pantoprazole [ProTONIX] Med 01/18/17 21:00 Active 40 mg PO BEDTIME Simvastatin [Zocor] Med 01/18/17 21:00 Active 40 mg PO BEDTIME Sodium Chloride 0.9% [Normal Saline] Med 01/17/17 23:00 Active 10 ml FLUSH ASDIRECTED Warfarin [Coumadin] Med 01/18/17 16:00 Hold 2.5 mg PO SuTuWeThFrSa@1600 Warfarin [Coumadin] Med 01/22/17 16:00 Hold 3.75 mg PO Mo@1600 Zolpidem [Ambien] Med 01/17/17 22:23 Active 5 mg PO BEDTIME PRN methylPREDNISolone Sod Succ [Solu-MEDROL] Med 01/17/17 22:30 Active 80 mg IVPUSH Q8H Blood Culture x2 Reflex Set [OM.PC] Urgent Oth 01/18/17 09:23 Ordered CHF Questionnaire [COMM] Routine Oth 01/18/17 09:23 Ordered Give supplemental Oxygen PRN [COMM] Routine Oth 01/18/17 09:23 Ordered VTE Mechanical Contraindications [AST] Per Unit Routine Oth 01/18/17 09:22 Ordered VTE Pharmacological Contraindications [AST] Per Unit Oth 01/18/17 09:22 Ordered Routine Resuscitation Status Routine Resus Stat 01/17/17 22:23 Ordered Medication Orders Acetaminophen (Tylenol) 650 mg PO Q4H PRN PRN Reason: Pain (Mild 1-3)/fever Acetaminophen (Tylenol Arthritis Pain) 1,300 mg PO DAILY [facility] Last Admin: 01/18/17 09:39 Dose: 1,300 mg Albuterol (Proventil Neb Soln) 2.5 mg NEB Q2H PRN PRN Reason: Shortness Of Breath/wheezing Albuterol/Ipratropium (Duoneb 3.0-0.5 Mg/3 Ml) 3 ml NEB QIDRT [facility] Last Admin: 01/18/17 10:47 Dose: 3 ml Admin: 01/18/17 07:06 Dose: 3 ml Aspirin (Aspirin) 81 mg PO DAILY [facility] Last Admin: 01/18/17 09:38 Dose: 81 mg Docusate Sodium (Colace) 100 mg PO BID [facility] Last Admin: 01/18/17 10:55 Dose: Not Given Levofloxacin/Dextrose 750 mg/ (Premix) 150 mls @ 100 mls/hr IV Q24H [facility] Magnesium Hydroxide (Milk Of Magnesia) 30 ml PO Q12H PRN PRN Reason: Constipation Methylprednisolone Sodium Succinate (Solu-Medrol) 80 mg IVPUSH Q8H [facility] Last Admin: 01/18/17 05:36 Dose: 80 mg Admin: 01/17/17 22:44 Dose: Not Given Metoprolol Succinate (Toprol Xl) 100 mg PO DAILY [facility] Last Admin: 01/18/17 09:38 Dose: 100 mg Metoprolol Succinate (Toprol Xl) 50 mg PO BEDTIME [facility] Multivitamins/Minerals (Vitamins And Minerals) 1 tab PO DAILY [facility] Last Admin: 01/18/17 09:39 Dose: 1 tab Ondansetron HCl (Zofran) 4 mg IV Q4H PRN PRN Reason: Nausea/Vomiting Pantoprazole Sodium (Protonix) 40 mg PO BEDTIME JESUS Simvastatin (Zocor) 40 mg PO BEDTIME [facility] Sodium Chloride (Saline Flush) 10 ml FLUSH ASDIRECTED PRN PRN Reason: Keep Vein Open Last Admin: 01/18/17 07:45 Dose: 10 ml Admin: 01/18/17 05:38 Dose: 10 ml Admin: 01/17/17 23:10 Dose: 10 ml Admin: 01/17/17 21:11 Dose: 10 ml Sodium Chloride (Normal Saline) 10 ml FLUSH ASDIRECTED [facility] Warfarin Sodium (Coumadin) 2.5 mg PO SuTuWeThFrSa@1600 [facility] Warfarin Sodium (Coumadin) 3.75 mg PO Mo@1600 [facility] Zolpidem Tartrate (Ambien) 5 mg PO BEDTIME PRN PRN Reason: Sleep Assessment/Plan Comment:: Pt is DNI/DNR per discussion at bedside. Palliative care for chronic comorbidities as non reversible conditions. will treat acute copd exacerbation brought on secondary to right lower lobe pneumonia with IV steroids converted over to orals, 4 times a day DuoNeb with albuterol neb as needed, incentive spirometry and oxygenation via nasal cannula to keep sats greater than 88% less than 95% as he has a chronic CO2 retainer. We'll get him up and active in the room as able. Cultures are pending antibiotics started to cover CAP. Nutrition and strengthening along with discharge planning. We'll also get a repeat echocardiogram tomorrow. Evaluate degree of CHF and appropriate therapy/follow- up. Pharmacy currently dosing his warfarin at this time as it being held. Otherwise DVT PE prophylaxis with SCDs. Also likely discharge to home with inhaled corticosteroids and beta agonist and follow-up for PFTs to evaluate severity of COPD and appropriate treatment to try and prevent number of recurrent hospitalizations which are inevitable. All questions answered and discussed the patient which he is currently in agreement with the above plan of care. Anticipate discharge 48-72 hours pending above. He will likely require home health care even if for short duration for strengthening, ADLs, and home safety plan.
[2017-01-18] MEDS ORDERED: Warfarin 2.5 MG Tab PO SCH (16:00)
[2017-01-18] MEDS: Levofloxacin/Dextrose 5%-Water 750 MG in Premix Bag 1 BAG IV SCH (20:10)
[2017-01-18] MEDS: Pantoprazole 40 MG Tab.CR PO SCH (20:20)
[2017-01-18] MEDS: Simvastatin 40 MG Tab PO SCH (20:21)
[2017-01-18] MEDS: Metoprolol Succinate 50 MG Tab.ER PO SCH (20:22)
[2017-01-19] MEDS: methylPREDNISolone Sodium Succinate 125 MG/2 ML SDV IVPUSH SCH (06:23)
[2017-01-19] MEDS: Sodium Chloride 0.9% 10 ML Syringe FLUSH PRN ×4 (06:26→21:15)
[2017-01-19] MEDS: Albuterol/Ipratropium 3.0-0.5 MG/3 ML Neb Soln NEB SCH ×4 (07:17→21:11)
[2017-01-19] MEDS: Acetaminophen 650 MG Tab.ER PO SCH (08:24)
[2017-01-19] MEDS: Metoprolol Succinate 100 MG Tab.ER PO SCH (08:24)
[2017-01-19] MEDS: Docusate Sodium 100 MG Cap PO SCH ×2 (08:24→21:09)
[2017-01-19] MEDS: Multivitamins, Therapeutic with Minerals Tab PO SCH (08:24)
[2017-01-19] MEDS: Aspirin 81 MG Tab.Chew PO SCH (08:25)
[2017-01-19] MEDS: Metoprolol Succinate 50 MG Tab.ER PO SCH ×2 (09:08→21:10)
--- NOTE | 2017-01-19 10:04 | PCM.PN ---
- General Info Date of Service: 01/19/17 Admission Dx/Problem (Free Text): Admission Diagnosis/Problem Admission Diagnosis/Problem Pneumonia Subjective Update: Patient feels much better today. Still short of breath, and has a nonproductive cough. No fever chills or leg swelling. - Review of Systems General: Reports: No Symptoms HEENT: Reports: No Symptoms Pulmonary: Reports: Shortness of Breath, Cough Cardiovascular: Reports: No Symptoms Gastrointestinal: Reports: No Symptoms - Patient Data Vitals - Most Recent: Last Vital Signs Temp 97.7 F 01/19/17 04:00 Pulse 74 01/19/17 08:24 Resp 20 01/19/17 04:00 BP 132/66 01/19/17 08:24 Pulse Ox 90 L 01/19/17 07:19 Weight - Most Recent: 73.028 kg I&O - Last 24 Hours: Intake & Output 01/18/17 01/19/17 01/19/17 22:59 06:59 14:59 Intake Total 150 Output Total 320 300 Balance -170 -300 Lab Results Last 24 Hours: Laboratory Results - last 24 hr 01/18/17 01/19/17 01/19/17 Range/Units 13:55 06:20 06:20 WBC 12.5 H (4.5-12.0) X10-3/uL RBC 4.57 (4.30-5.75) x10(6)uL Hgb 14.2 (11.5-15.5) g/dL Hct 43.4 (30.0-51.3) % MCV 94.9 (80-96) fL MCH 31.2 (27.7-33.6) pg MCHC 32.8 (32.2-35.4) g/dL RDW 14.7 (11.5-15.5) % Plt Count 119 L (125-369) X10(3)uL MPV 9.5 (7.4-10.4) fL Add Manual Diff Yes Neutrophils % (Manual) 80 (46-82) % Band Neutrophils % 6 (0-6) % Lymphocytes % (Manual) 9 L (13-37) % Atypical Lymphs % 5 H (0-0) % PT 40.1 H* (8.7-11.1) INR 3.86 H (0.89-1.13) Sodium (135-145) mmol/L Potassium (3.5-5.3) mmol/L Chloride (100-110) mmol/L Carbon Dioxide (23-29) mmol/L BUN (8-23) mg/dL Creatinine (0.6-1.3) mg/dL Est Cr Clr Drug Dosing mL/min Estimated GFR (MDRD) (>60) BUN/Creatinine Ratio (9-20) Glucose (80-116) mg/dL Calcium (8.6-10.2) mg/dL Troponin I 0.02 (0.02-0.06) NG/ML 01/19/17 Range/Units 06:20 WBC (4.5-12.0) X10-3/uL RBC (4.30-5.75) x10(6)uL Hgb (11.5-15.5) g/dL Hct (30.0-51.3) % MCV (80-96) fL MCH (27.7-33.6) pg MCHC (32.2-35.4) g/dL RDW (11.5-15.5) % Plt Count (125-369) X10(3)uL MPV (7.4-10.4) fL Add Manual Diff Neutrophils % (Manual) (46-82) % Band Neutrophils % (0-6) % Lymphocytes % (Manual) (13-37) % Atypical Lymphs % (0-0) % PT (8.7-11.1) INR (0.89-1.13) Sodium 139 (135-145) mmol/L Potassium 4.5 (3.5-5.3) mmol/L Chloride 100 (100-110) mmol/L Carbon Dioxide 30 H (23-29) mmol/L BUN 23 (8-23) mg/dL Creatinine 0.8 (0.6-1.3) mg/dL Est Cr Clr Drug Dosing 68.85 mL/min Estimated GFR (MDRD) > 60 (>60) BUN/Creatinine Ratio 28.8 H (9-20) Glucose 174 H (80-116) mg/dL Calcium 8.7 (8.6-10.2) mg/dL Troponin I (0.02-0.06) NG/ML Lopez Results Last 24 Hours: Microbiology 01/18/17 07:40 Gram Stain - Final Sputum - Expectorated Sputum Culture - Preliminary Normal Anay Med Orders - Current: Current Medications Acetaminophen (Tylenol) 650 mg PO Q4H PRN PRN Reason: Pain (Mild 1-3)/fever Acetaminophen (Tylenol Arthritis Pain) 1,300 mg PO DAILY [facility] Last Admin: 01/19/17 08:24 Dose: 1,300 mg Albuterol (Proventil Neb Soln) 2.5 mg NEB Q2H PRN PRN Reason: Shortness Of Breath/wheezing Albuterol/Ipratropium (Duoneb 3.0-0.5 Mg/3 Ml) 3 ml NEB QIDRT [facility] Last Admin: 01/19/17 07:17 Dose: 3 ml Aspirin (Aspirin) 81 mg PO DAILY [facility] Last Admin: 01/19/17 08:25 Dose: 81 mg Docusate Sodium (Colace) 100 mg PO BID [facility] Last Admin: 01/19/17 08:24 Dose: 100 mg Levofloxacin/Dextrose 750 mg/ (Premix) 150 mls @ 100 mls/hr IV Q24H [facility] Last Admin: 01/18/17 20:10 Dose: 100 mls/hr Magnesium Hydroxide (Milk Of Magnesia) 30 ml PO Q12H PRN PRN Reason: Constipation Metoprolol Succinate (Toprol Xl) 50 mg PO BEDTIME [facility] Last Admin: 01/18/17 20:22 Dose: 50 mg Metoprolol Succinate (Toprol Xl) 50 mg PO DAILY [facility] Last Admin: 01/19/17 09:08 Dose: Not Given Multivitamins/Minerals (Vitamins And Minerals) 1 tab PO DAILY [facility] Last Admin: 01/19/17 08:24 Dose: 1 tab Ondansetron HCl (Zofran) 4 mg IV Q4H PRN PRN Reason: Nausea/Vomiting Pantoprazole Sodium (Protonix) 40 mg PO BEDTIME [facility] Last Admin: 01/18/17 20:20 Dose: 40 mg Prednisone (Prednisone) 20 mg PO BIDMEALS [facility] Simvastatin (Zocor) 40 mg PO BEDTIME [facility] Last Admin: 01/18/17 20:21 Dose: 40 mg Sodium Chloride (Saline Flush) 10 ml FLUSH ASDIRECTED PRN PRN Reason: Keep Vein Open Last Admin: 01/19/17 07:44 Dose: 10 ml Sodium Chloride (Normal Saline) 10 ml FLUSH ASDIRECTED [facility] Warfarin Sodium (Coumadin) 2.5 mg PO SuTuWeThFrSa@1600 [facility] Warfarin Sodium (Coumadin) 3.75 mg PO Mo@1600 [facility] Zolpidem Tartrate (Ambien) 5 mg PO BEDTIME PRN PRN Reason: Sleep Discontinued Medications Albuterol/Ipratropium (Duoneb 3.0-0.5 Mg/3 Ml) Confirm Administered Dose 3 ml .ROUTE .STK-MED ONE Stop: 01/17/17 20:59 Last Admin: 01/17/17 21:10 Dose: Not Given Albuterol/Ipratropium (Duoneb 3.0-0.5 Mg/3 Ml) 3 ml NEB ONETIME ONE Stop: 01/17/17 21:05 Last Admin: 01/17/17 21:04 Dose: 3 ml Levofloxacin/Dextrose 500 mg/ (Premix) 100 mls @ 100 mls/hr IV Q24H [facility] Last Admin: 01/17/17 22:01 Dose: 100 mls/hr Levofloxacin/Dextrose 500 mg/ (Premix) 100 mls @ 100 mls/hr IV Q24H [facility] Last Admin: 01/17/17 22:47 Dose: Not Given Influenza Virus Vaccine (Fluzone Quad [id number]) 60 mcg IM .ONCE ONE Stop: 01/18/17 00:31 Levofloxacin (Levaquin) 500 mg PO Q24H [facility] Last Admin: 01/17/17 22:43 Dose: Not Given Methylprednisolone Sodium Succinate (Solu-Medrol) 80 mg IVPUSH ONETIME ONE Stop: 01/17/17 20:12 Last Admin: 01/17/17 21:09 Dose: 80 mg Methylprednisolone Sodium Succinate (Solu-Medrol) 80 mg IVPUSH Q8H [facility] Last Admin: 01/19/17 06:23 Dose: 80 mg Metoprolol Succinate (Toprol Xl) 50 mg PO DAILY [facility] Metoprolol Succinate (Toprol Xl) 100 mg PO DAILY [facility] Last Admin: 01/19/17 08:24 Dose: 100 mg Pantoprazole Sodium (Protonix) 40 mg PO DAILY PRN PRN Reason: Heartburn - Exam Quality Assessment: Supplemental Oxygen General: Alert, Oriented HEENT: Pupils Equal, Pupils Reactive, EOMI, Mucous Membr. Moist/[place] Neck: Supple Lungs: Decreased Breath Sounds Cardiovascular: Regular Rate, Regular Rhythm Skin: Warm, Dry, Intact Psy/Mental Status: Alert, Normal Affect, Normal Mood - Problem List & Annotations (1) Acute exacerbation of congestive heart failure SNOMED Code(s): 85624190 Code(s): I50.9 - HEART FAILURE, UNSPECIFIED Status: Acute Priority: High Current Visit: Yes Qualifiers: Congestive heart failure type: unspecified congestive heart failure type Qualified Code(s): I50.9 - Heart failure, unspecified (2) COPD exacerbation SNOMED Code(s): 797551249420475 Code(s): J44.1 - CHRONIC OBSTRUCTIVE PULMONARY DISEASE W (ACUTE) EXACERBATION Status: Acute Priority: High Current Visit: Yes (3) Supratherapeutic INR SNOMED Code(s): 988213373 Code(s): R79.1 - ABNORMAL COAGULATION PROFILE Status: Acute Priority: High Current Visit: Yes (4) CAD (coronary artery disease) SNOMED Code(s): 42211912 Code(s): I25.10 - ATHSCL HEART DISEASE OF [place] CORONARY ARTERY W/O ANG PCTRS Status: Chronic Priority: High Current Visit: Yes Qualifiers: Coronary Disease-Associated Artery/Lesion type: [place] artery [place] vs. transplanted heart: [place] heart Associated angina: without angina Qualified Code(s): I25.10 - Atherosclerotic heart disease of [place] coronary artery without angina pectoris - Problem List Review Problem List Initiated/Reviewed/Updated: Yes - My Orders Last 24 Hours: My Active Orders 01/19/17 06:20 PROCALCITONIN [REF] Stat 01/19/17 09:00 Metoprolol Succinate [Toprol XL] 50 mg PO DAILY predniSONE 20 mg PO BIDMEALS 01/19/17 09:29 RT PFT Spirometry [RC] Click to Edit - Plan Plan:: Pt is better this morning, and a chest x-ray was nondiagnostic. There is concern of malignancy from yesterday's report, and I believe a CT scan might be helpful if his symptoms persist. For now I'll decrease the dose of metoprolol 50 mg twice a day, up discontinued IV Solu-Medrol in favor of prednisone 10 twice a day, and will continue Levaquin. I will do a Procalcitonin and BNP, BMP tomorrow morning, and have asked pharmacy to dose the Coumadin.
[2017-01-19] MEDS: predniSONE 20 MG Tab PO SCH ×2 (10:08→18:05)
--- NOTE | 2017-01-19 11:37 | CR ---
INDICATION: Follow-up right lower lobe pneumonia. CHEST: PA and lateral views of the chest 01/19/2017, were compared with 2016 and 09/04/2012, again revealing extensive thoracic aortic stent for aneurysm. Median sternotomy is noted. The heart appears to be slight enlarged. Findings are again compatible with COPD. Bony structures may be slightly demineralized, raising question of osteoporosis - correlate clinically. Heavy markings are again noted at the left lung base, likely fibrotic in nature. Very minimal blunting of the costophrenic angles and posterior sulci may be fibrotic in nature additionally. However, there appears to be some very minimal infiltrate at the right lung base and a minimal pneumonia and pleuritis certainly cannot be excluded in that area. It was not visualized on the previous chest x-ray of 03/10/2016, however. No gross consolidating pneumonia or significant sized effusion was identified. IMPRESSION: 1. Cannot exclude minimal pneumonia and pleuritis at the right lung base. 2. Additionally, heavy markings at the left lung base, although essentially identical to the previous examination and likely representing fibrosis, make it difficult to exclude minimal patchy bronchopneumonia and pleuritis at the left lung base. 3. COPD. 4. Possible osteoporosis. 5. Post aortic stenting, median sternotomy, mild ASHD with mild cardiomegaly. MTDD
[2017-01-19] MEDS ORDERED: Warfarin Sliding Scale PO SCH (13:30)
[2017-01-19] MEDS: Simvastatin 40 MG Tab PO SCH (21:10)
[2017-01-19] MEDS: Pantoprazole 40 MG Tab.CR PO SCH (21:10)
[2017-01-19] MEDS: Levofloxacin/Dextrose 5%-Water 750 MG in Premix Bag 1 BAG IV SCH (21:15)
[2017-01-20] MEDS: Albuterol/Ipratropium 3.0-0.5 MG/3 ML Neb Soln NEB SCH ×2 (07:22→10:53)
[2017-01-20] MEDS: Sodium Chloride 0.9% 10 ML Syringe FLUSH PRN (07:57)
[2017-01-20] MEDS: predniSONE 20 MG Tab PO SCH (08:00)
[2017-01-20] MEDS: Aspirin 81 MG Tab.Chew PO SCH (08:00)
[2017-01-20] MEDS: Multivitamins, Therapeutic with Minerals Tab PO SCH (08:00)
[2017-01-20] MEDS: Acetaminophen 650 MG Tab.ER PO SCH (08:00)
[2017-01-20] MEDS: Metoprolol Succinate 50 MG Tab.ER PO SCH (08:00)
[2017-01-20] MEDS: Docusate Sodium 100 MG Cap PO SCH (08:00)
[2017-01-20 08:01] VITALS: BP 167/72
--- NOTE | 2017-01-20 09:08 | PCM.PN ---
- General Info Date of Service: 01/20/17 Subjective Update: Patient is doing well, feels is as 'good as he will ever be". Is on 1 L of oxygenation and he does have oxygen at home. He has no fever or chills no chest pain Functional Status: Reports: Pain Controlled - Review of Systems General: Reports: No Symptoms HEENT: Reports: No Symptoms Pulmonary: Reports: Cough Cardiovascular: Reports: No Symptoms Gastrointestinal: Reports: No Symptoms - Patient Data Vitals - Most Recent: Last Vital Signs Temp 97.5 F 01/20/17 03:35 Pulse 80 01/20/17 08:00 Resp 20 01/20/17 03:35 BP 167/72 H 01/20/17 08:00 Pulse Ox 94 L 01/20/17 07:22 Weight - Most Recent: 72.167 kg I&O - Last 24 Hours: Intake & Output 01/19/17 01/20/17 01/20/17 22:59 06:59 14:59 Intake Total 500 270 Output Total 500 1225 Balance 0 -955 Lab Results Last 24 Hours: Laboratory Results - last 24 hr 01/20/17 01/20/17 01/20/17 Range/Units 06:18 06:18 06:18 WBC 13.5 H (4.5-12.0) X10-3/uL RBC 4.66 (4.30-5.75) x10(6)uL Hgb 14.5 (11.5-15.5) g/dL Hct 43.9 (30.0-51.3) % MCV 94.1 (80-96) fL MCH 31.1 (27.7-33.6) pg MCHC 33.1 (32.2-35.4) g/dL RDW 14.7 (11.5-15.5) % Plt Count 142 (125-369) X10(3)uL MPV 8.8 (7.4-10.4) fL Add Manual Diff Yes Neutrophils % (Manual) 91 H (46-82) % Lymphocytes % (Manual) 8 L (13-37) % Monocytes % (Manual) 1 L (4-12) % PT 24.0 H (8.7-11.1) INR 2.34 H (0.89-1.13) Sodium 138 (135-145) mmol/L Potassium 4.4 (3.5-5.3) mmol/L Chloride 97 L (100-110) mmol/L Carbon Dioxide 34 H (23-29) mmol/L BUN 29 H (8-23) mg/dL Creatinine 0.8 (0.6-1.3) mg/dL Est Cr Clr Drug Dosing 68.85 mL/min Estimated GFR (MDRD) > 60 (>60) BUN/Creatinine Ratio 36.3 H (9-20) Glucose 131 H (80-116) mg/dL Calcium 8.7 (8.6-10.2) mg/dL C-Reactive Protein 0.9 (0.0-1.0) mg/dL NT-Pro-B Natriuret Pep 1477 H (5-450) pg/mL Lopez Results Last 24 Hours: Microbiology 01/18/17 07:40 Gram Stain - Final Sputum - Expectorated Sputum Culture - Final Normal Anay Med Orders - Current: Current Medications Acetaminophen (Tylenol) 650 mg PO Q4H PRN PRN Reason: Pain (Mild 1-3)/fever Acetaminophen (Tylenol Arthritis Pain) 1,300 mg PO DAILY [facility] Last Admin: 01/20/17 08:00 Dose: 1,300 mg Albuterol (Proventil Neb Soln) 2.5 mg NEB Q2H PRN PRN Reason: Shortness Of Breath/wheezing Albuterol/Ipratropium (Duoneb 3.0-0.5 Mg/3 Ml) 3 ml NEB QIDRT [facility] Last Admin: 01/20/17 07:22 Dose: 3 ml Aspirin (Aspirin) 81 mg PO DAILY [facility] Last Admin: 01/20/17 08:00 Dose: 81 mg Docusate Sodium (Colace) 100 mg PO BID [facility] Last Admin: 01/20/17 08:00 Dose: 100 mg Levofloxacin/Dextrose 750 mg/ (Premix) 150 mls @ 100 mls/hr IV Q24H [facility] Last Admin: 01/19/17 21:15 Dose: 100 mls/hr Magnesium Hydroxide (Milk Of Magnesia) 30 ml PO Q12H PRN PRN Reason: Constipation Metoprolol Succinate (Toprol Xl) 50 mg PO BEDTIME [facility] Last Admin: 01/19/17 21:10 Dose: 50 mg Metoprolol Succinate (Toprol Xl) 50 mg PO DAILY [facility] Last Admin: 01/20/17 08:00 Dose: 50 mg Multivitamins/Minerals (Vitamins And Minerals) 1 tab PO DAILY [facility] Last Admin: 01/20/17 08:00 Dose: 1 tab Ondansetron HCl (Zofran) 4 mg IV Q4H PRN PRN Reason: Nausea/Vomiting Pantoprazole Sodium (Protonix) 40 mg PO BEDTIME [facility] Last Admin: 01/19/17 21:10 Dose: 40 mg Prednisone (Prednisone) 20 mg PO BIDMEALS [facility] Last Admin: 01/20/17 08:00 Dose: 20 mg Simvastatin (Zocor) 40 mg PO BEDTIME [facility] Last Admin: 01/19/17 21:10 Dose: 40 mg Sodium Chloride (Saline Flush) 10 ml FLUSH ASDIRECTED PRN PRN Reason: Keep Vein Open Last Admin: 01/20/17 07:57 Dose: 10 ml Sodium Chloride (Normal Saline) 10 ml FLUSH ASDIRECTED [facility] Warfarin Sodium (Coumadin) 2.5 mg PO SuTuWeThFrSa@1600 [facility] Warfarin Sodium (Coumadin) 3.75 mg PO Mo@1600 [facility] Warfarin Sodium (Coumadin Sliding Scale) 1 each PO ASDIRECTED [facility] Zolpidem Tartrate (Ambien) 5 mg PO BEDTIME PRN PRN Reason: Sleep Discontinued Medications Albuterol/Ipratropium (Duoneb 3.0-0.5 Mg/3 Ml) Confirm Administered Dose 3 ml .ROUTE .STK-MED ONE Stop: 01/17/17 20:59 Last Admin: 01/17/17 21:10 Dose: Not Given Albuterol/Ipratropium (Duoneb 3.0-0.5 Mg/3 Ml) 3 ml NEB ONETIME ONE Stop: 01/17/17 21:05 Last Admin: 01/17/17 21:04 Dose: 3 ml Levofloxacin/Dextrose 500 mg/ (Premix) 100 mls @ 100 mls/hr IV Q24H [facility] Last Admin: 01/17/17 22:01 Dose: 100 mls/hr Levofloxacin/Dextrose 500 mg/ (Premix) 100 mls @ 100 mls/hr IV Q24H [facility] Last Admin: 01/17/17 22:47 Dose: Not Given Influenza Virus Vaccine (Fluzone Quad [id number]) 60 mcg IM .ONCE ONE Stop: 01/18/17 00:31 Levofloxacin (Levaquin) 500 mg PO Q24H [facility] Last Admin: 01/17/17 22:43 Dose: Not Given Methylprednisolone Sodium Succinate (Solu-Medrol) 80 mg IVPUSH ONETIME ONE Stop: 01/17/17 20:12 Last Admin: 01/17/17 21:09 Dose: 80 mg Methylprednisolone Sodium Succinate (Solu-Medrol) 80 mg IVPUSH Q8H [facility] Last Admin: 01/19/17 06:23 Dose: 80 mg Metoprolol Succinate (Toprol Xl) 50 mg PO DAILY [facility] Metoprolol Succinate (Toprol Xl) 100 mg PO DAILY [facility] Last Admin: 01/19/17 08:24 Dose: 100 mg Pantoprazole Sodium (Protonix) 40 mg PO DAILY PRN PRN Reason: Heartburn - Exam Quality Assessment: Supplemental Oxygen General: Alert HEENT: Pupils Equal, Pupils Reactive, EOMI, Mucous Membr. Moist/[place] Neck: Supple Lungs: Clear to Auscultation, Normal Respiratory Effort, Decreased Breath Sounds. No: Rhonchi, Stridor - Problem List & Annotations (1) Acute exacerbation of congestive heart failure SNOMED Code(s): 69167549 Code(s): I50.9 - HEART FAILURE, UNSPECIFIED Status: Acute Priority: High Current Visit: Yes Qualifiers: Congestive heart failure type: unspecified congestive heart failure type Qualified Code(s): I50.9 - Heart failure, unspecified (2) COPD exacerbation SNOMED Code(s): 161211223305086 Code(s): J44.1 - CHRONIC OBSTRUCTIVE PULMONARY DISEASE W (ACUTE) EXACERBATION Status: Acute Priority: High Current Visit: Yes (3) Supratherapeutic INR SNOMED Code(s): 860626226 Code(s): R79.1 - ABNORMAL COAGULATION PROFILE Status: Acute Priority: High Current Visit: Yes (4) CAD (coronary artery disease) SNOMED Code(s): 23121821 Code(s): I25.10 - ATHSCL HEART DISEASE OF [place] CORONARY ARTERY W/O ANG PCTRS Status: Chronic Priority: High Current Visit: Yes Qualifiers: Coronary Disease-Associated Artery/Lesion type: [place] artery [place] vs. transplanted heart: [place] heart Associated angina: without angina Qualified Code(s): I25.10 - Atherosclerotic heart disease of [place] coronary artery without angina pectoris - Problem List Review Problem List Initiated/Reviewed/Updated: Yes - My Orders Last 24 Hours: My Active Orders 01/19/17 09:00 Metoprolol Succinate [Toprol XL] 50 mg PO DAILY predniSONE 20 mg PO BIDMEALS 01/19/17 09:29 RT PFT Spirometry [RC] Click to Edit 01/19/17 13:30 Warfarin Sliding Scale [Coumadin Sliding Scale] 1 each PO ASDIRECTED - Plan Plan:: I have reviewed the x-ray from yesterday did not see any solid infiltrated. I will discharge the patient home, and I will have him see his physician next week FOR consideration of CT scan if symptoms don't improve. I will send him home on Levaquin and prednisone orally.
--- NOTE | 2017-01-20 23:07 | DISCH ---
DISCHARGE DATE: 01/20/2017 REASON FOR ADMISSION: 1. COPD exacerbation. 2. Pneumonia. 3. History of coronary artery disease. DISCHARGE DIAGNOSES: 1. Chronic obstructive pulmonary disease exacerbation. 2. Pulmonary fibrosis. 3. History of congestive heart failure. 4. Pneumonia. BRIEF HISTORY AND HOSPITAL COURSE: This is an 81-year-old who came in on the from the clinic directly because of cough, shortness of breath, increasing need of oxygenation. He was initially admitted with Solu-Medrol and IV Levaquin. His symptoms improved gradually and I transitioned him to oral prednisone and Levaquin. He was feeling well enough to go home on Sunday, the , and I discharged him home on a 5-day course of prednisone 20 mg b.i.d. and Levaquin 500 mg daily for 1 week. I advised him to follow up with his PCP next week and return to the ED with any worsening symptoms. I spent more than 35 minutes in the discharge of the patient and the rest of his home medications were resumed. /[id number] [place]/DAVID
[2017-01-22] MEDS ORDERED: Warfarin 2.5 MG Tab PO SCH (16:00)
== END 2017-01-20 12:30 | disposition home or self-care (01) | DRG 193 ==
LOC: FB.ED 19:05 → FB.MS 21:43
PROVIDERS: ADMIT Emergency Medicine; ATTEND Family Medicine
DX: J18.1 Lobar pneumonia, unspecified organism (principal); I50.33 Acute on chronic diastolic (congestive) heart failure; J44.0 Chronic obstructive pulmonary disease with (acute) lower respiratory infection; J44.1 Chronic obstructive pulmonary disease with (acute) exacerbation; E87.2 Acidosis; I11.0 Hypertensive heart disease with heart failure; I48.0 Paroxysmal atrial fibrillation; Z79.01 Long term (current) use of anticoagulants; Z99.81 Dependence on supplemental oxygen; R09.02 Hypoxemia; Z87.891 Personal history of nicotine dependence; Z86.718 Personal history of other venous thrombosis and embolism; R79.1 Abnormal coagulation profile; R79.82 Elevated C-reactive protein (CRP); I25.10 Atherosclerotic heart disease of native coronary artery without angina pectoris; J84.10 Pulmonary fibrosis, unspecified; Z66 Do not resuscitate; R53.81 Other malaise; R06.02 Shortness of breath; R05 Cough; Z86.79 Personal history of other diseases of the circulatory system; Z51.5 Encounter for palliative care; Z87.01 Personal history of pneumonia (recurrent); Z23 Encounter for immunization; E78.00 Pure hypercholesterolemia, unspecified; K21.9 Gastro-esophageal reflux disease without esophagitis; I25.2 Old myocardial infarction; M19.90 Unspecified osteoarthritis, unspecified site; Z95.1 Presence of aortocoronary bypass graft; H54.7 Unspecified visual loss; Z79.82 Long term (current) use of aspirin; Z79.52 Long term (current) use of systemic steroids; Z88.8 Allergy status to other drugs, medicaments and biological substances
CPT/HCPCS: 36415; 80053; 82803; 83605; 83880; 84484; 85025; 85610; 86140; 93005; 94640; 96375; 99284; J2920; J7050; J7620; 36600; 71020; 80048; 81001; 84145; 87070; 87205; 90686; 93306; 94150; 96365; 96374; 97161-GP; 99285; A9270; A9270-GY; G0008; J1956; J2930